=== PATIENT | male | born 1955 | race Caucasian/White ===

== ENCOUNTER 2025-04-01 14:57 | Inpatient (IN) | payer OTHER ==
[2025-04-01] MEDS ORDERED: NOREPINEPHRINE BITARTRATE 4 MG/4 ML ML IV ONE ×2 (15:07→18:00)
[2025-04-01] MEDS: NOREPINEPHRINE BITARTRATE 4,000 MCG in DEXTROSE 5%-WATER - 496 ML IV SCH (15:11)
[2025-04-01] MEDS ORDERED: NOREPINEPHRINE BITARTRATE 16,000 MCG in SODIUM CHLORIDE 484 ML IV SCH (16:30)
[2025-04-01 16:33] LABS: VENOUS BASE EXCESS -11.6 mmol/L (-2-2); VENOUS PCO2 66.1 mmHg (38-52)
[2025-04-01 16:35] LABS: VENOUS PH 7.074 (7.310-7.410)
[2025-04-01] MEDS: SODIUM CHLORIDE 1,000 ML IV STA (16:40)
[2025-04-01 16:56] LABS: CHLORIDE 105 mmol/L (98-107); SODIUM 136 mmol/L (136-145)
[2025-04-01 16:59] LABS: ALBUMIN 3.2 g/dl (3.4-5.0); CALCIUM 8.9 mg/dL (8.5-10.1); CO2 22 mmol/L (21-32); GLUCOSE,RANDOM 215 mg/dL (74-106); MAGNESIUM 2.6 mg/dL (1.8-2.4)
[2025-04-01 17:02] LABS: CREATININE 2.2 mg/dL (0.55-1.3); SGOT/AST 72 U/L (15-37); SGPT/ALT 21 U/L (13-61)
[2025-04-01 17:03] LABS: PHOSPHOROUS 6.9 mg/dL (2.5-4.9)
[2025-04-01 17:04] LABS: BILIRUBIN,TOTAL 0.3 mg/dL (0.2-1); TOT PROT 7.5 g/dl (6.4-8.2)
[2025-04-01 17:05] LABS: ALK PHOS 81 U/L (45-117)
[2025-04-01 17:06] LABS: ANION GAP 8 mmol/L (4-13); POTASSIUM 7.3 mmol/L (3.5-5.1)
[2025-04-01 17:07] LABS: INR 1.05 (0.83-1.09); N-TERMINAL BNP 2489.6 pg/ml (5-125); PROTHROMBIN TIME (PATIENT) 11.6 SEC (9.7-13.0)
[2025-04-01 17:10] LABS: ACTIVATED PTT 20.2 SECONDS (25.2-36.5)
[2025-04-01] MEDS ORDERED: VANCOMYCIN 1,000 MG in DEXTROSE 5%-WATER - 250 ML IVPB SCH (17:15)
[2025-04-01 17:22] LABS: VENOUS BASE EXCESS -9.8 mmol/L (-2-2); VENOUS O2 SATURATION 24.3 % (70-80)
[2025-04-01 17:24] LABS: VENOUS PH 7.08 (7.310-7.410)
[2025-04-01 17:25] LABS: VENOUS PCO2 70.7 mmHg (38-52)
[2025-04-01] MEDS ORDERED: PIPERACILLIN/TAZOB 3.375 GM 3.375 GM/50 ML BAG IVPB ONE (17:28)
[2025-04-01] MEDS ORDERED: CALCIUM CHLORIDE 1 GM/10 ML *DISP.SYRIN ONE (17:28)
[2025-04-01] MEDS: CALCIUM CHLORIDE 1 GM/10 ML *DISP.SYRIN IVPB ONE (17:39)
[2025-04-01 17:49] LABS: ABSOLUTE IMMATURE GRANULOCYTES 0.34 x10^3/uL (0.0-0.031); BASOPHILS # 0.05 x10^3/uL (0.01-0.08); EOSINOPHIL % 0.1 % (0.8-7.0); EOSINOPHILS # 0.01 x10^3/uL (0.04-0.54); HEMATOCRIT 31.1 % (40.1-51.0); HEMOGLOBIN 9.4 g/dL (13.7-17.5); MCHC 30.2 g/dl (32.3-36.5); MEAN PLT VOLUME 9.9 fl (9.4-12.4); MONOCYTE # 1.16 x10^3/uL (0.30-0.82); MONOCYTE % 5.8 % (5.3-12.2); PLATELET COUNT 243 x10^3/uL (163-337); RDW 14.4 % (12.2-16.4)
[2025-04-01] MEDS: PIPERACILLIN/TAZOB 3.375 GM 3.375 GM in DEXTROSE 5%-WATER - 50 ML IVPB ONE (18:05)
[2025-04-01] MEDS ORDERED: DEXTROSE 50%-WATER - 25 GM/50 ML VIAL ONE (18:11)
[2025-04-01] MEDS ORDERED: DEXTROSE 50%-WATER 25 GM/50 ML DISP.SYRIN ONE (18:13)
[2025-04-01] MEDS ORDERED: NOREPINEPHRINE 0.9 % NACL 8 MG/250 ML BAG IVPB ONE (18:24)
[2025-04-01] MEDS: INSULIN REGULAR HUMAN 100 UNITS/ML *VIAL IVPUSH ONE ×2 (18:24→21:04)
[2025-04-01] MEDS: DEXTROSE 50%-WATER 25 GM/50 ML DISP.SYRIN IVPUSH ONE (18:24)
[2025-04-01] MEDS ORDERED: FENTANYL NS IVPB 500 MCG/100 ML BAG IVPB ONE (18:24)
[2025-04-01] MEDS ORDERED: NOREPINEPHRINE 0.9 % NACL 8 MG/250 ML BAG IVPB SCH (18:30)
[2025-04-01] MEDS: FENTANYL NS IVPB 500 MCG/100 ML BAG IVPB SCH (18:34)
[2025-04-01] MEDS: NOREPINEPHRINE 0.9 % NACL 8 MG/250 ML BAG IVPB SCH (18:35)
[2025-04-01] MEDS ORDERED: VANCOMYCIN 1 GM PREMIX (F) 1 GM/200 ML BAG ONE (19:07)
[2025-04-01 19:20] LABS: EPI CELLS 13 /uL (0-25.1); HYALINE CASTS 1 /uL (0-3.1); PH,URINE 5.5 (5.0-8.0); URINE APPEARANCE CLEAR; URINE BACTERIA 16 /uL (0-1359); URINE BILIRUBIN NEGATIVE (NEGATIVE); URINE COLOR YELLOW; URINE GLUCOSE (UA) NEGATIVE (NEGATIVE); URINE KETONE NEGATIVE (NEGATIVE); URINE LEUK ESTERASE NEGATIVE (NEGATIVE); URINE NITRITE NEGATIVE (NEGATIVE); URINE PROTEIN 2+ (NEGATIVE); URINE RBC 41 /uL (0-23.9); URINE UROBILINOGEN 0.2 mg/dL (0.2-1.0); URINE WBC 31 /uL (0-25.8)
[2025-04-01] MEDS: VANCOMYCIN 1 GM PREMIX (F) 1 GM/200 ML BAG IVPB SCH (19:27)
[2025-04-01] MEDS ORDERED: INSULIN DRIP - PLEASE ORDER UNDER SETS NR ONE (19:59)
[2025-04-01 20:06] LABS: CHLORIDE 109 mmol/L (98-107); SODIUM 138 mmol/L (136-145)
[2025-04-01 20:08] LABS: CALCIUM 9.1 mg/dL (8.5-10.1)
[2025-04-01 20:09] LABS: BLOOD UREA NITROGEN 27.7 mg/dL (7-18); CO2 21 mmol/L (21-32); GLUCOSE,RANDOM 272 mg/dL (74-106)
[2025-04-01 20:25] LABS: ANION GAP 7 mmol/L (4-13); POTASSIUM 7.7 mmol/L (3.5-5.1)
[2025-04-01] MEDS ORDERED: CALCIUM GLUCONATE 10% - 1,000 MG/10 ML VIAL ONE (20:58)
[2025-04-01] MEDS: DEXTROSE 50%-WATER - 25 GM/50 ML VIAL IVPUSH ONE (21:02)
[2025-04-01] MEDS: MIDAZOLAM HCL 5 MG/1 ML Single Dose Vial IVPUSH ONE (21:02)
[2025-04-01] MEDS: SODIUM BICARBONATE 8.4% 50 MEQ/50 ML DISP.SYRIN IVPUSH ONE ×2 (21:03→21:04)
[2025-04-01] MEDS ORDERED: ALBUTEROL SO4 0.083% IH SOL 2.5 MG/3 ML VIAL.NEB. NEB ONE (21:08)
[2025-04-01] MEDS ORDERED: VASopressin 20 UNITS/ML VIAL IV ONE (21:26)
[2025-04-01] MEDS: ALBUTEROL SO4 0.5 % INH SOLN 2.5 MG/0.5 ML VIAL.NEB. NEB ONE (21:30)
[2025-04-01] MEDS: CALCIUM GLUC IN NACL, ISO-OSM 1 GM/50 ML BAG IVPB SCH (21:36)
[2025-04-01 21:37] LABS: ARTERIAL BLD GAS O2 SATURATION 99.8 % (95-98); ARTERIAL BLOOD GAS BASE EXCESS -3.5 mmol/L (-2-2); ARTERIAL BLOOD GAS PO2 408.5 mmHg (80-100); ARTERIAL BLOOD GAS pH 7.221 (7.350-7.450); O2 CONTENT 1.43 % vol
[2025-04-01 21:41] LABS: ALLENS TEST POSITIVE; VENT MODE A/C; VENT RATE 18
[2025-04-01] MEDS ORDERED: FUROSEMIDE 40 MG/4 ML INJECTABLE VIAL ONE (21:45)
[2025-04-01] MEDS: INSULIN REGULAR 100 UNITS in SODIUM CHLORIDE 99 ML IVPB SCH (21:56)
[2025-04-01] MEDS: SODIUM BICARBONATE 8.4% - 150 MEQ in DEXTROSE 5%-WATER - 950 ML IVPB SCH (21:57)
[2025-04-01] MEDS: FUROSEMIDE 40 MG/4 ML INJECTABLE VIAL IVPUSH ONE (22:00)
[2025-04-01] MEDS ORDERED: CHLORHEXIDINE GLUCONATE 4% CLEANSER FOR DECOLONIZATION TP SCH (22:00)
[2025-04-01] MEDS ORDERED: MUPIROCIN 2% TOPICAL OINTMENT FOR DECOLONIZATION NS SCH (22:00)
[2025-04-01] MEDS: MIDAZOLAM IN 0.9 % SOD.CHLORID 100 MG/100 ML PLAST..BAG IVPB SCH (22:03)
[2025-04-01] MEDS: levETIRAcetam 500 MG/5 ML INJECTION VIAL IVPB ONE (22:04)
[2025-04-01] MEDS: PHENTOLAMINE MESYLATE 5 MG/2 ML VIAL IVPUSH ONE (22:30)
[2025-04-01] MEDS: CHLORHEXIDINE GLUCONATE 4% CLEANSER FOR DECOLONIZATION TP SCH (22:43)
[2025-04-01] MEDS: SODIUM CHLORIDE 0.9% 500 ML INFUS.BAG IV ONE (22:43)
[2025-04-01 22:48] LABS: LACTIC ACID 2.9 mmol/L (0.4-2.0)
[2025-04-01] MEDS: MUPIROCIN 2% TOPICAL OINTMENT FOR DECOLONIZATION NS SCH (23:22)
[2025-04-01] MEDS: HYDROCORTISONE SOD SUCCINATE 100 MG/2 ML VIAL IVPB SCH (23:25)
[2025-04-01] MEDS: ALBUMIN HUMAN 5% 500 ML IV SOLUTION IV ONE (23:29)
[2025-04-02 00:14] LABS: INR 1.06 (0.83-1.09); PROTHROMBIN TIME (PATIENT) 11.7 SEC (9.7-13.0)
[2025-04-02 00:22] LABS: CHLORIDE 110 mmol/L (98-107); SODIUM 139 mmol/L (136-145)
[2025-04-02 00:23] LABS: POTASSIUM 6.3 mmol/L (3.5-5.1)
[2025-04-02 00:24] LABS: ANION GAP 6 mmol/L (4-13); BLOOD UREA NITROGEN 30.4 mg/dL (7-18); CALCIUM 8.5 mg/dL (8.5-10.1); CO2 23 mmol/L (21-32); GLUCOSE,RANDOM 152 mg/dL (74-106)
[2025-04-02 00:26] LABS: URIC ACID 9.7 mg/dL (2.6-7.2)
[2025-04-02 00:28] LABS: CREATININE 1.9 mg/dL (0.55-1.3)
[2025-04-02] MEDS: NITROGLYCERIN 2% OINTMENT - 1GM PACKET TD SCH (00:39)
[2025-04-02] MEDS: PIPERACILLIN/TAZOB 2.25 GM 2.25 GM/50 ML BAG IVPB SCH (01:19)
[2025-04-02] MEDS: VASopressin 40 UNITS/100 ML BAG IV SCH (01:19)
[2025-04-02] MEDS ORDERED: PIPERACILLIN/TAZOB 2.25 GM 2.25 GM in DEXTROSE 5%-WATER - 50 ML IVPB SCH (02:00)
[2025-04-02] MEDS: DEXTROSE 10%-WATER 500 ML INFUS.BAG IV ONE (02:23)
[2025-04-02] MEDS ORDERED: INSULIN REGULAR HUMAN 100 UNITS/ML *VIAL ONE (02:39)
[2025-04-02 05:56] LABS: ARTERIAL BLD GAS O2 SATURATION 97.1 % (95-98); ARTERIAL BLOOD GAS BASE EXCESS -1.4 mmol/L (-2-2); ARTERIAL BLOOD GAS PO2 94.7 mmHg (80-100); ARTERIAL BLOOD GAS pH 7.376 (7.350-7.450)
[2025-04-02 05:57] LABS: ALLENS TEST POSITIVE
[2025-04-02 05:58] LABS: VENT MODE A/C; VENT RATE 24
[2025-04-02 06:49] LABS: HEMATOCRIT 26.5 % (40.1-51.0); HEMOGLOBIN 8.3 g/dL (13.7-17.5); MCHC 31.3 g/dl (32.3-36.5); MEAN PLT VOLUME 10.8 fl (9.4-12.4); PLATELET COUNT 149 x10^3/uL (163-337); RDW 14.2 % (12.2-16.4)
[2025-04-02 07:09] LABS: BLOOD UREA NITROGEN 29.6 mg/dL (7-18); CALCIUM 8.5 mg/dL (8.5-10.1)
[2025-04-02 07:10] LABS: MAGNESIUM 1.7 mg/dL (1.8-2.4)
[2025-04-02 07:13] LABS: PHOSPHOROUS 4.6 mg/dL (2.5-4.9)
[2025-04-02 07:20] LABS: BILIRUBIN,DIRECT 0.1 mg/dL (0.0-0.2)
[2025-04-02 07:21] LABS: SGOT/AST 346 U/L (15-37); SGPT/ALT 33 U/L (13-61)
[2025-04-02 07:22] LABS: BILIRUBIN,TOTAL 0.3 mg/dL (0.2-1)
[2025-04-02 07:23] LABS: ALK PHOS 52 U/L (45-117)
[2025-04-02 07:25] LABS: POTASSIUM 5.1 mmol/L (3.5-5.1)
[2025-04-02 07:55] LABS: IRON SERUM 18 ug/dL (50-175); TOTAL IRON BINDING CAPACITY 175 ug/dL (250-450)
[2025-04-02] MEDS ORDERED: ONDANSETRON 4 MG/2 ML VIAL IVPUSH PRN (09:00)
[2025-04-02] MEDS: levETIRAcetam 500 MG/5 ML INJECTION VIAL IVPB SCH (09:32)
[2025-04-02] MEDS: MAGNESIUM SULFATE IN WATER 2 GM/50 ML IVPB IVPB ONE (09:32)
[2025-04-02] MEDS: PANTOPRAZOLE SODIUM 40 MG VIAL IVPUSH SCH (09:40)
[2025-04-02] MEDS ORDERED: SODIUM CHLORIDE 1,000 ML IV SCH (10:00)
[2025-04-02] MEDS: ALBUTEROL SO4 2.5/IPRATROPIUM 0.5 INH SOL 3 ML VIAL.NEB. NEB SCH (11:33)
[2025-04-02] MEDS: SODIUM CHLORIDE 1,000 ML IV SCH (11:57)
[2025-04-02] MEDS ORDERED: ACETAMINOPHEN INJECTION 100 ML ONE (14:06)
[2025-04-02] MEDS: ACETAMINOPHEN 1000 MG/100 ML BAG IVPB PRN (14:07)
[2025-04-02 15:08] VITALS: BMI 20.8
[2025-04-02] MEDS ORDERED: VANCOMYCIN 1,000 MG in DEXTROSE 5%-WATER - 250 ML IVPB SCH (17:00)
[2025-04-02] MEDS: ALBUMIN HUMAN 25% 100 ML VIAL IV ONE (20:13)
[2025-04-02 20:18] LABS: ARTERIAL BLD GAS O2 SATURATION 98.8 % (95-98); ARTERIAL BLOOD GAS BASE EXCESS -1.8 mmol/L (-2-2); ARTERIAL BLOOD GAS PO2 136.8 mmHg (80-100); ARTERIAL BLOOD GAS pH 7.421 (7.350-7.450)
[2025-04-02 20:19] LABS: HEMATOCRIT 26.6 % (40.1-51.0); HEMOGLOBIN 8.3 g/dL (13.7-17.5); MCHC 31.2 g/dl (32.3-36.5); MEAN CELL VOLUME 98.9 fl (79.0-92.2); MEAN PLT VOLUME 10.9 fl (9.4-12.4); PLATELET COUNT 156 x10^3/uL (163-337); RDW 14.8 % (12.2-16.4)
[2025-04-02 20:27] LABS: VENT MODE A/C; VENT RATE 24
[2025-04-02 20:40] LABS: CHLORIDE 104 mmol/L (98-107); POTASSIUM 5.5 mmol/L (3.5-5.1); SODIUM 137 mmol/L (136-145)
[2025-04-02 20:41] LABS: CALCIUM 7.9 mg/dL (8.5-10.1)
[2025-04-02 20:42] LABS: ANION GAP 10 mmol/L (4-13); BLOOD UREA NITROGEN 32.3 mg/dL (7-18); CO2 23 mmol/L (21-32); GLUCOSE,RANDOM 206 mg/dL (74-106); MAGNESIUM 2.1 mg/dL (1.8-2.4)
[2025-04-02 20:45] LABS: CREATININE 2.2 mg/dL (0.55-1.3)
[2025-04-02 20:46] LABS: PHOSPHOROUS 5.3 mg/dL (2.5-4.9)
[2025-04-02] MEDS: CALCIUM GLUC IN NACL, ISO-OSM 1 GM/50 ML BAG IVPB SCH (21:12)
[2025-04-02] MEDS: FUROSEMIDE 40 MG/4 ML INJECTABLE VIAL IVPUSH ONE (21:13)
[2025-04-02 22:10] VITALS: PULSE 93
[2025-04-03 01:09] VITALS: BP 125/64; TEMP 98.7
[2025-04-03 01:11] VITALS: RESP 24
== END 2025-04-03 01:30 | disposition short-term general hospital (02) | DRG 871 ==
LOC: JER 14:57 → JERBED 16:20 → JICU 20:38
PROVIDERS: ADMIT Internal Medicine Pulmonary Disease; ATTEND Internal Medicine Pulmonary Disease
PROC: 5A1945Z Respiratory Ventilation, 24-96 Consecutive Hours (ICD-10-PCS; principal; 2025-04-01)
PROC: 0BH17EZ Insertion of Endotracheal Airway into Trachea, Via Natural or Artificial Opening (ICD-10-PCS; 2025-04-01)
PROC: 06HY33Z Insertion of Infusion Device into Lower Vein, Percutaneous Approach (ICD-10-PCS; 2025-04-01)
PROC: 4A133B1 Monitoring of Arterial Pressure, Peripheral, Percutaneous Approach (ICD-10-PCS; 2025-04-02)
PROC: 4A133J1 Monitoring of Arterial Pulse, Peripheral, Percutaneous Approach (ICD-10-PCS; 2025-04-02)
DX: A41.9 Sepsis, unspecified organism (principal); G93.41 Metabolic encephalopathy; I46.9 Cardiac arrest, cause unspecified; R65.21 Severe sepsis with septic shock; R57.0 Cardiogenic shock; J18.9 Pneumonia, unspecified organism; I21.4 Non-ST elevation (NSTEMI) myocardial infarction; J96.21 Acute and chronic respiratory failure with hypoxia; J96.22 Acute and chronic respiratory failure with hypercapnia; C79.89 Secondary malignant neoplasm of other specified sites; C79.51 Secondary malignant neoplasm of bone; C34.90 Malignant neoplasm of unspecified part of unspecified bronchus or lung; N17.9 Acute kidney failure, unspecified; J44.1 Chronic obstructive pulmonary disease with (acute) exacerbation; G93.1 Anoxic brain damage, not elsewhere classified; M62.82 Rhabdomyolysis; G40.801 Other epilepsy, not intractable, with status epilepticus; E87.20 Acidosis, unspecified; G93.40 Encephalopathy, unspecified; I24.89 Other forms of acute ischemic heart disease; D64.9 Anemia, unspecified; J43.9 Emphysema, unspecified; E87.5 Hyperkalemia; D69.6 Thrombocytopenia, unspecified; E78.5 Hyperlipidemia, unspecified; I10 Essential (primary) hypertension
CPT/HCPCS: 0241U-QW; 36415; 36600; 70450-TC; 71045-TC-FY; 71250-TC; 74176-TC; 80048; 80053; 80076; 81003; 82550; 82553; 82728; 82803; 82962; 83540; 83550; 83605; 83735; 83880; 84100; 84484; 84550; 85025; 85027; 85384; 85610; 85730; 86850; 86900; 86901; 87040; 87086; 93005; 93010; 93306-TC; 93970-TC; 94002; 94640; 99291; J3490